=== PATIENT | female | born 1940 | race Caucasian/White ===

== ENCOUNTER 2022-01-30 13:56 | Outpatient (CLI) | payer MEDICARE, OTHER, SELFPAY ==
[2022-01-30 11:23] LABS: Cholesterol* 194 mg/dL (90-199); Glucose* 106 mg/dL (60-115); Triglycerides* 125 mg/dL (40-149)
[2022-01-30 11:24] LABS: HDL Cholesterol* 65 mg/dL (>=50); LDL Cholesterol Calculated 104 mg/dL (<100)
== END 2022-01-30 13:57 | disposition home or self-care (01) ==
PROVIDERS: PCP Internal Medicine; Visit Provider Internal Medicine
DX: Z13.1 Encounter for screening for diabetes mellitus (principal); Z13.6 Encounter for screening for cardiovascular disorders
CPT/HCPCS: 80061; 82947

== ENCOUNTER 2022-04-12 14:23 | Emergency (ER) | payer MEDICARE, OTHER, SELFPAY ==
[2022-04-12] VITALS (11 sets, daily range): BP systolic 114–150; BP diastolic 67–86; PULSE 73–195; RESP 18; TEMP 36.3; O2SAT 91–98; BMI 30.3
--- NOTE | 2022-04-12 14:44 | CRLHL7_ITS ---
For Patients: As a result of the Cures Act, medical imaging exams and procedure reports are released immediately into your electronic medical record. You may view this report before your referring provider. If you have questions, please contact your health care provider. INDICATION: Palpitations TECHNIQUE: Chest 1 view Comparison: None Findings: Cardiac silhouette is mildly enlarged. No focal lung consolidation, pleural effusion or pneumothorax. Degenerative changes in the spine. Impression: Mild cardiomegaly. Otherwise no acute cardiopulmonary abnormality. Dictated by Edgard Watson MD @ 04/12/2022 3:43:12 PM (Electronically Signed)
--- NOTE | 2022-04-12 14:45 | ED.NURSE ---
pt arrived to ED in SVT 190's. ekg done, pt placed on heart monitor. #20 sl placed r ac, 6mg adenosine given with dr. antony at bedside. pt converted to SR 90's. pt states feeling better.
--- NOTE | 2022-04-12 14:51 | ED.GENADULT ---
HPI - General Adult General Time Seen by Provider: 14:51 Date Seen: 04/12/22 Chief complaint: Arrhythmia/Palpitations Stated complaint: Elevated heartrate Time Seen by Provider: 04/12/22 14:24 Source: patient Mode of arrival: ambulatory Limitations: no limitations History of Present Illness HPI narrative: Patient is a very pleasant 81-year-old female who lives independently in the apartments at [address] [place] [address], and noted some dizziness today, some rapid heart rate, and noted her pulse to be in the 201 range. She has had 1 episode of this in the past but it resolved spontaneously within minutes, she has had no regular SVT, she has a past history of acoustic neuroma and uterine prolapse. She has had no cardiac history. She reports she is on aspirin allergy medicine and estradiol vaginal cream and meclizine as needed medications. She is on and has no allergies. On presentation her heart rate is 195, and regular. The patient denies chest pain, denies shortness of breath does feel her heart racing. She has had no recent bleeding clotting or swelling in her legs. She has been sick with a ?cold-like symptoms? over the last couple of weeks. She has had COVID/influenza/RSV test were negative. She sees Dr. Vandana gillette for primary care Related Data Home Medications Medication Instructions Recorded Confirmed meclizine 25 mg tablet 25 mg PO 10/15/21 03/26/22 acetaminophen 325 mg tablet 325 mg PO ONCE 01/27/22 03/26/22 apple cider vinegar 600 mg capsule 600 mg PO PRN 01/27/22 03/26/22 aspirin 81 mg chewable tablet 81 mg PO QDAY PRN 01/27/22 03/26/22 cetirizine 10 mg tablet 10 mg PO QDAY PRN 01/27/22 03/26/22 Previous Rx's Medication Instructions Recorded estradiol 0.01% (0.1 mg/gram) 0.5 g vaginal .Twice Weekly 10/15/21 vaginal cream vaginal atrophy 90 days #42.5 grams metoprolol succinate 25 mg 25 mg PO DAILY #14 tabs 04/12/22 tablet,extended release 24 hr Allergies Allergy/AdvReac Type Severity Reaction Status Date / Time No Known Allergies Allergy Verified 02/25/22 11:06 Review of Systems Status of ROS: Reports: 10 or more systems reviewed and unremarkable except as noted in History and below [facility] Surgical History History of appendectomy History of cataract surgery History of tonsillectomy History of tubal ligation Social History Smoking Status: Never smoker How often do you have a drink containing alcohol: never AUDIT-C Alcohol total score: 0 Non-prescribed substance use: denies use Little interest or pleasure in doing things: not at all Feeling down, depressed, or hopeless: not at all Exam Narrative: Exam Narrative: Objective: Patient's vital signs unremarkable, her pulse however is 195. HEENT is unremarkable Patient alert orient x3 Lungs are clear Heart tachycardic rhythm 2/6 systolic murmur Abdomen benign Extremities are no edema neurologic nonfocal, good peripheral perfusion noted Const: Vital Signs, click to edit/add: Vital Signs - 24 hr 04/12/22 14:28 04/12/22 15:20 04/12/22 15:30 Temperature 97.4 F L Pulse Rate 94 93 Pulse Rate [Right Pulse Oximeter] 195 H Respiratory Rate 18 Blood Pressure Blood Pressure [Ri ght Upper Arm] 114/77 Pulse Oximetry 98 91 95 Oxygen Delivery Me thod Room Air 04/12/22 15:31 04/12/22 16:00 04/12/22 16:02 Temperature Pulse Rate 91 82 86 Pulse Rate [Right Pulse Oximeter] Respiratory Rate Blood Pressure 128/74 129/72 Blood Pressure [Ri ght Upper Arm] Pulse Oximetry 94 97 92 Oxygen Delivery Me thod 04/12/22 16:03 04/12/22 16:30 04/12/22 16:32 Temperature Pulse Rate 84 79 82 Pulse Rate [Right Pulse Oximeter] Respiratory Rate Blood Pressure 150/86 H Blood Pressure [Ri ght Upper Arm] Pulse Oximetry 97 96 96 Oxygen Delivery Me thod 04/12/22 17:00 04/12/22 17:02 Temperature Pulse Rate 73 77 Pulse Rate [Right Pulse Oximeter] Respiratory Rate Blood Pressure 122/67 Blood Pressure [Ri ght Upper Arm] Pulse Oximetry 96 96 Oxygen Delivery Me thod Course Vital Signs Vital signs: Initial Vital Signs Temperature 97.4 F L 04/12/22 14:28 Temperature Source Temporal Artery Scan 04/12/22 14:28 Pulse Rate 195 H 04/12/22 14:28 Respiratory Rate 18 04/12/22 14:28 Blood Pressure 114/77 04/12/22 14:28 Blood Pressure Mean 89 04/12/22 14:28 Blood Pressure Position Sitting 04/12/22 14:28 Pulse Oximetry 98 04/12/22 14:28 Oxygen Delivery Method 04/12/22 14:28 Vital Signs Temperature 97.4 F L 04/12/22 14:28 Pulse Rate 195 H 04/12/22 14:28 Respiratory Rate 18 04/12/22 14:28 Blood Pressure 114/77 04/12/22 14:28 Pulse Oximetry 98 04/12/22 14:28 Oxygen Delivery Method 04/12/22 14:28 Temperature 97.4 F L 04/12/22 14:28 Pulse Rate 77 04/12/22 17:02 Respiratory Rate 18 04/12/22 14:28 Blood Pressure 122/67 04/12/22 17:02 Pulse Oximetry 96 04/12/22 17:02 Oxygen Delivery Method 04/12/22 14:28 Medical Decision Making MDM Narrative Medical decision making narrative: Patient is an 81 white female who is generally quite healthy, but has had a history of what sounds like SVT in the past that resolved spontaneously. Now with an episode of what appears to be SVT based on EKG findings of narrow complex tachycardia that looks regular she does have some right and left partial blocks her heart rate is 196 on the EKG that my read. Procedure: Adenosine 6 mg IV was given in a push fashion. And the patient had a transient block of her heart rate, then followed by a normal sinus rhythm at a rate of 106 she has got a bifascicular block by my read no acute ST T wave changes. Patient feels much better at this time. Should get a 500 mL normal saline bolus, will give her aspirin, will get laboratory studies and x-ray. Will repeat a COVID/influenza/RSV test. Will recheck a troponin after the 1. Patient had SVT it appears with the EZ conversion to adenosine with just slowing her rate. Likely Holter monitor probably home, light activity, continue aspirin, follow-up with Dr. Ross in as planned in the next few days Addendum: Patient's lab studies look reassuring, her initial troponin is negative her 2nd troponin is in the intermediate range which shows cardiac strain from a rapid heart rate of the 200 range. She remains in a sinus rhythm, she took the metoprolol and tolerated that well her systolic blood pressure is 122. She has appointment see Dr. Ross in later this week to discuss ongoing management. I think that is very reasonable I think she can go home at this time fluids, light activity, or metoprolol daily she can fill this prescription tomorrow, adequate hydration is important in this was discussed with her and her son they will follow up with her doctor as mention return to ED as needed. Lab Data Labs: Lab Results 04/12/22 04/12/22 04/12/22 Range/Units 14:44 14:45 14:45 WBC 8.71 (4.50-11.00) K/uL RBC 5.32 H (4.00-5.20) m/uL Hgb 14.9 (12.0-16.0) gm/dL Hct 46.1 (33.0-51.0) % MCV 87 (80-100) fL MCH 28 (26-34) pg MCHC 32 (32-36) gm/dL RDW Coeff of Rhina 13.3 (11.5-15.5) % Plt Count 236 (140-440) K/uL Neut % (Auto) 73.0 H (42.0-72.0) % Lymph % (Auto) 18.5 L (20-44) % [place] % (Auto) 6.2 (0.0-11.0) % Eos % (Auto) 1.8 (0.0-7.0) % Baso % (Auto) 0.3 (0.0-3.0) % Neut # (Auto) 6.40 (1.7-7.0) K/uL Lymph # (Auto) 1.60 (0.90-2.90) K/uL [place] # (Auto) 0.50 (0.00-0.90) K/UL Eos # (Auto) 0.16 (0.00-0.50) K/uL Baso # (Auto) 0.03 (0.00-0.30) K/uL Sodium 137 (135-149) mmol/L Potassium 3.6 (3.6-5.1) mmol/L Chloride 100 (96-114) mmol/L Carbon Dioxide 31 (20-32) mmol/L BUN 11 (7-30) mg/dL Creatinine 0.7 (0.5-1.5) mg/dL Estimated Creat Clear 46.59 Estimated GFR 86 ml/min Glucose 183 H (60-115) mg/dL Calcium 9.8 (8.4-10.6) mg/dL Total Bilirubin (0.1-1.5) mg/dL Direct Bilirubin (0.0-0.5) mg/dL AST (12-35) U/L ALT (4-35) U/L Alkaline Phosphatase (40-150) U/L Troponin I (0.01-0.04) ng/mL C-Reactive Protein 0.6 (0.5-1.0) mg/dL Total Protein (6.0-8.3) g/dL Albumin (3.3-5.0) g/dL Amylase 78 (18-89) U/L SARS-CoV-2 (PCR) Negative SARS-CoV-2 (Negative) Influenza Type A (PCR) Negative PCR FLU A (Negative) Influenza Type B (PCR) Negative PCR FLU B (Negative) RSV (PCR) Negative PCR RSV (Negative) 04/12/22 04/12/22 Range/Units 14:45 16:45 WBC (4.50-11.00) K/uL RBC (4.00-5.20) m/uL Hgb (12.0-16.0) gm/dL Hct (33.0-51.0) % MCV (80-100) fL MCH (26-34) pg MCHC (32-36) gm/dL RDW Coeff of Rhina (11.5-15.5) % Plt Count (140-440) K/uL Neut % (Auto) (42.0-72.0) % Lymph % (Auto) (20-44) % [place] % (Auto) (0.0-11.0) % Eos % (Auto) (0.0-7.0) % Baso % (Auto) (0.0-3.0) % Neut # (Auto) (1.7-7.0) K/uL Lymph # (Auto) (0.90-2.90) K/uL [place] # (Auto) (0.00-0.90) K/UL Eos # (Auto) (0.00-0.50) K/uL Baso # (Auto) (0.00-0.30) K/uL Sodium (135-149) mmol/L Potassium (3.6-5.1) mmol/L Chloride (96-114) mmol/L Carbon Dioxide (20-32) mmol/L BUN (7-30) mg/dL Creatinine (0.5-1.5) mg/dL Estimated Creat Clear Estimated GFR ml/min Glucose (60-115) mg/dL Calcium (8.4-10.6) mg/dL Total Bilirubin 0.7 (0.1-1.5) mg/dL Direct Bilirubin 0.2 (0.0-0.5) mg/dL AST 31 (12-35) U/L ALT 23 (4-35) U/L Alkaline Phosphatase 142 (40-150) U/L Troponin I < 0.01 L 0.09 H* (0.01-0.04) ng/mL C-Reactive Protein (0.5-1.0) mg/dL Total Protein 7.9 (6.0-8.3) g/dL Albumin 4.3 (3.3-5.0) g/dL Amylase (18-89) U/L SARS-CoV-2 (PCR) (Negative) Influenza Type A (PCR) (Negative) Influenza Type B (PCR) (Negative) RSV (PCR) (Negative) Discharge Plan Discharge Clinical Impression: Tachycardia Patient Disposition: Home w/ Parent or Adult Condition: Improved Additional Instructions: light activity, fluids, continue home meds, metoprolol daily, appt regiular doc next week as planned Activity Level: Light activity Discharge Diet: Regular Prescriptions: New metoprolol succinate 25 mg tablet extended release 24 hr 25 mg PO DAILY Qty: 14 2RF No Action meclizine 25 mg tablet 25 mg PO estradiol 0.01 % (0.1 mg/gram) cream 0.5 g vaginal .Twice Weekly 90 Days Qty: 42.5 4RF Rx Instructions: Use twice weekly. May apply with fingers acetaminophen 325 mg tablet 325 mg PO ONCE Rx Instructions: NO MORE THAN 4000 MG/DAY aspirin 81 mg tablet,chewable 81 mg PO QDAY PRN apple cider vinegar 600 mg capsule 600 mg PO PRN cetirizine 10 mg tablet 10 mg PO QDAY PRN Follow Up/Referrals: Paola Caban MD [Primary Care Provider] - Stand Alone Forms: [facility] Info Instructions
[2022-04-12] MEDS: ADENOSINE 6 MG/2ML INJ IVP (14:54)
[2022-04-12 14:59] LABS: Basophils Absolute Auto 0.03 K/uL (0.00-0.30); Basophils Percent Auto 0.3 % (0.0-3.0); Eosinophils Absolute Auto 0.16 K/uL (0.00-0.50); Eosinophils Percent Auto 1.8 % (0.0-7.0); Hematocrit 46.1 % (33.0-51.0); Hemoglobin* 14.9 gm/dL (12.0-16.0); Immature Granulocytes Abs Auto 0.02 K/uL (0.00-0.30); Immature Granulocytes Pct Auto 0.2 %; Lymphocytes Percent Auto 18.5 % (20-44); Mean Corpuscular HGB Conc 32 gm/dL (32-36); Mean Corpuscular Hemoglobin 28 pg (26-34); Mean Corpuscular Volume 87 fL (80-100); Monocytes Percent Auto 6.2 % (0.0-11.0); Platelet Count* 236 K/uL (140-440); RDW Coefficient of Variation % 13.3 % (11.5-15.5); Red Blood Count 5.32 m/uL (4.00-5.20); Slide Review Reflex No; White Blood Count* 8.71 K/uL (4.50-11.00)
[2022-04-12] MEDS: 0.9 % SODIUM CHLORIDE 500 ML 500 ML IV (15:07)
[2022-04-12 15:08] LABS: Albumin* 4.3 g/dL (3.3-5.0)
[2022-04-12] MEDS: ASPIRIN 81 MG TAB.CHEW 162 MG PO ×3 (15:08→15:09)
[2022-04-12 15:09] LABS: Chloride* 100 mmol/L (96-114); Potassium* 3.6 mmol/L (3.6-5.1); Sodium* 137 mmol/L (135-149)
[2022-04-12 15:11] LABS: Alanine Aminotransferase* 23 U/L (4-35); Alkaline Phosphatase* 142 U/L (40-150); Amylase* 78 U/L (18-89); Aspartate Amino Transferase* 31 U/L (12-35); Bilirubin Direct* 0.2 mg/dL (0.0-0.5); Bilirubin Total* 0.7 mg/dL (0.1-1.5); Total Protein* 7.9 g/dL (6.0-8.3)
[2022-04-12 15:12] LABS: Blood Urea Nitrogen* 11 mg/dL (7-30); Carbon Dioxide* 31 mmol/L (20-32); Creatinine* 0.7 mg/dL (0.5-1.5); Est. Creatinine Clearance* 46.59; Estimated Glomerular Filt Rate 86 ml/min
[2022-04-12 15:13] LABS: Calcium* 9.8 mg/dL (8.4-10.6); Glucose* 183 mg/dL (60-115)
[2022-04-12 15:15] LABS: C Reactive Protein* 0.6 mg/dL (0.5-1.0)
[2022-04-12 15:22] LABS: Troponin I* < 0.01 ng/mL (0.01-0.04)
[2022-04-12 15:47] LABS: PCR FLU A Negative PCR FLU A (Negative); PCR FLU B Negative PCR FLU B (Negative); PCR RSV Negative PCR RSV (Negative)
[2022-04-12] MEDS: METOPROLOL SUCCINATE (XL) 25 MG TAB PO (15:52)
[2022-04-12 15:56] LABS: SARS PCR* Negative SARS-CoV-2 (Negative)
[2022-04-12 17:26] LABS: Troponin I* 0.09 ng/mL (0.01-0.04)
== END 2022-04-12 17:46 | disposition home or self-care (01) ==
PROVIDERS: Emergency Provider Family Medicine; PCP Internal Medicine
DX: R00.0 Tachycardia, unspecified (principal)
CPT/HCPCS: 36415; 71045; 80048; 80076; 82150; 84484; 85025; 86140; 87502; 87634; 87635; 93005; 94761; 96374; 99285; 99291; A9270; J0153; J7120

== ENCOUNTER 2022-06-08 15:11 | Outpatient (CLI) | payer MEDICARE, OTHER, SELFPAY ==
--- NOTE | 2022-06-08 15:30 | CRLHL7_ITS ---
For Patients: As a result of the Century Cures Act, medical imaging exams and procedure reports are released immediately into your electronic medical record. You may view this report before your referring provider. If you have questions, please contact your health care provider. INDICATION: Acoustic neuroma. TECHNIQUE: Brain and temporal bone MRI with contrast. The following sequences were obtained: DWI and ADC mapping sequences. Sagittal T1 weighted sequence. Axial FLAIR and ALVARO T2 weighted sequences of the whole brain. 3D T2-weighted CISS sequence of the temporal bones. Thin section T1 weighted axial and coronal pre-contrast and post-contrast sequences of the temporal bones. T1 weighted post-contrast sequence(s) of the whole brain. 15 cc of Dotarem gadolinium based contrast agent was used. COMPARISON : Brain MRI from 01/08/2021. FINDINGS: 7 x 7 millimeter enhancing nodule within the left internal auditory canal, compatible with a vestibular schwannoma. The lesion extends to the left IAC fundus. Stable in size and appearance compared to the prior exam. No evidence of acute ischemia. No evidence of acute or chronic intracranial blood products. No mass or pathologic intracranial enhancement elsewhere within the brain. Patchy FLAIR hyperintensities throughout the supratentorial white matter, and to a lesser extent the central brainstem, typical for chronic microvascular ischemic changes. No hydrocephalus or extra-axial collections. The pituitary gland, parasellar structures and optic chiasm are normal. All the major intracranial vascular structures demonstrate normal flow-related signal. The orbital contents are normal. No calvarial or skull base marrow replacing process. No obstructive sinus disease. No extracranial soft tissue findings. IMPRESSION: 1. 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 2. No mass or abnormal enhancement elsewhere within the brain. 3. No acute ischemia or other acute intracranial pathology. 4. Mild to moderate chronic microvascular ischemic changes. Dictated by Marc Dominguez MD @ 06/09/2022 2:08:15 PM (Electronically Signed)
== END 2022-06-08 15:12 | disposition home or self-care (01) ==
PROVIDERS: PCP Internal Medicine; Visit Provider Otolaryngology
DX: D33.3 Benign neoplasm of cranial nerves (principal); I67.82 Cerebral ischemia
CPT/HCPCS: 70553; A9575

== ENCOUNTER 2022-06-21 16:08 | Emergency (ER) | payer MEDICARE, OTHER, SELFPAY ==
[2022-06-21] VITALS (12 sets, daily range): BP systolic 142–182; BP diastolic 87–102; PULSE 82–189; RESP 22; TEMP 37.1; O2SAT 93–99; BMI 29.9
[2022-06-21] MEDS: ADENOSINE 6 MG/2ML INJ IVP (16:25)
--- NOTE | 2022-06-21 16:33 | ED_ITS ---
HPI - Arrhythmia/Palpitations General Chief Complaint: Arrhythmia/Palpitations Stated Complaint: Elevated Heart Rate 210 Time Seen by Provider: 06/21/22 16:14 History of Present Illness HPI narrative: This 81-year-old female comes in with rapid heart rate. She arrives with a rate at around 190 beats per minute. She thinks that this started about half an hour prior to arrival. She does not report any chest pain but does feel little bit of lightheadedness and shortness of breath. She is maintaining other normal vital signs. Prior to this she was feeling well. She had a similar episode about 2 and half months ago and was converted with adenosine. Related Data Home Medications Medication Instructions Recorded Confirmed cetirizine 10 mg tablet 10 mg PO QDAY PRN 01/27/22 06/21/22 acetaminophen 325 mg tablet 325 mg PO ONCE PRN 05/26/22 06/21/22 amoxicillin 500 mg capsule 500 mg PO TID 05/26/22 05/26/22 aspirin 81 mg tablet,delayed 81 mg PO QDAY PRN 05/26/22 06/21/22 release (Adult Low Dose Aspirin) ibuprofen 200 mg tablet 200 mg PO Q6H PRN 05/26/22 06/21/22 meclizine 25 mg tablet 25 mg PO DAILY PRN 05/26/22 06/21/22 Previous Rx's Medication Instructions Recorded estradiol 0.01% (0.1 mg/gram) 0.5 g vaginal .Twice Weekly 10/15/21 vaginal cream vaginal atrophy 90 days #42.5 grams metoprolol succinate 25 mg 25 mg PO DAILY #30 tabs 06/21/22 tablet,extended release 24 hr Allergies Allergy/AdvReac Type Severity Reaction Status Date / Time No Known Allergies Allergy Verified 06/21/22 16:22 Review of Systems Status of ROS: Reports: 10 or more systems reviewed and unremarkable except as noted in History and below Narrative: Constitutional: No fevers, no weight gain or loss. Eyes: No discharge. No vision changes. HENT: No congestion, no sore throat, no ear pain. Cardiovascular: No chest pain. Rapid heart rate. Respiratory: No shortness of breath, no wheezes, no cough. Gastrointestinal: No abdominal pain, no vomiting, no diarrhea. Genitourinary: No dysuria, no hematuria. Musculoskeletal: Normal range of motion. Skin: No rashes, no pruritis. Neurological: No dizziness, weakness, sensory change, speech change. Endo/Heme/Allergies: No bruising or bleeding. No polydipsia. Pysch: no suicidality, no anxiety, no insomnia. All other systems reviewed and are negative. [facility] Medical History (Updated 06/21/22 @ 17:28 by Gee Ryder MD) Situational anxiety Surgical History History of appendectomy History of cataract surgery History of tonsillectomy History of tubal ligation Social History Smoking Status: Never smoker Do you use any of these nicotine containing products: None Second hand tobacco smoke exposure: No How often do you have a drink containing alcohol: never AUDIT-C Alcohol total score: 0 Non-prescribed substance use: denies use Little interest or pleasure in doing things: not at all Feeling down, depressed, or hopeless: not at all Exam Narrative: Exam Narrative: Constitutional: Well-developed, well-nourished, no acute distress. HEENT: Normocephalic, atraumatic. Neck: Normal range of motion. Nontender. Supple. Heart: Regular. No murmurs. Tachycardia, rate 190 beats per minute. Lungs: Clear to auscultation. No chest discomfort. No wheezes, rhonchi, or rales. Abdomen: Normal bowel sounds. Nontender. No rebound tenderness. Genitalia: Deferred. Back: No midline tenderness. Normal range of motion. Extremities: Normal range of motion. No injury. Skin: Intact. No rash. Warm. No erythema or pallor. Neurologic: No altered sensation. No weakness. Alert and oriented. Psychiatric: No suicidality. No anxiety or depression. No insomnia. Nursing notes and vitals signs are reviewed. Const: Vital Signs, click to edit/add: Vital Signs - 24 hr 06/21/22 16:17 06/21/22 16:25 06/21/22 16:32 Temperature 98.8 F Pulse Rate 83 Pulse Rate [Right Pulse Oximeter] 189 H Respiratory Rate 22 Blood Pressure 163/91 H Blood Pressure [Ri ght Upper Arm] 142/102 H Pulse Oximetry 97 99 95 Oxygen Delivery Me thod Room Air 06/21/22 16:33 03/05/23 16:45 06/21/22 16:47 Temperature Pulse Rate 84 87 89 Pulse Rate [Right Pulse Oximeter] Respiratory Rate Blood Pressure 150/87 H Blood Pressure [Ri ght Upper Arm] Pulse Oximetry 94 94 94 Oxygen Delivery Me thod 06/21/22 16:48 06/21/22 17:07 06/21/22 17:15 Temperature Pulse Rate 89 91 82 Pulse Rate [Right Pulse Oximeter] Respiratory Rate Blood Pressure Blood Pressure [Ri ght Upper Arm] Pulse Oximetry 93 96 95 Oxygen Delivery Me thod Course Vital Signs Vital signs: Initial Vital Signs Temperature 98.8 F 06/21/22 16:17 Temperature Source Temporal Artery Scan 06/21/22 16:17 Pulse Rate 189 H 06/21/22 16:17 Respiratory Rate 22 06/21/22 16:17 Blood Pressure 142/102 H 06/21/22 16:17 Blood Pressure Mean 115 06/21/22 16:17 Blood Pressure Position Sitting 06/21/22 16:17 Pulse Oximetry 97 06/21/22 16:17 Oxygen Delivery Method 06/21/22 16:17 Vital Signs Temperature 98.8 F 06/21/22 16:17 Pulse Rate 189 H 06/21/22 16:17 Respiratory Rate 22 06/21/22 16:17 Blood Pressure 142/102 H 06/21/22 16:17 Pulse Oximetry 97 06/21/22 16:17 Oxygen Delivery Method 06/21/22 16:17 Temperature 98.8 F 06/21/22 16:17 Pulse Rate 82 06/21/22 17:15 Respiratory Rate 22 06/21/22 16:17 Blood Pressure 150/87 H 06/21/22 16:47 Pulse Oximetry 95 06/21/22 17:15 Oxygen Delivery Method 06/21/22 16:17 MDM - Arrhythmia/Palpitations MDM Narrative Medical decision making narrative: This patient comes in with rapid heart rate typical of supraventricular tachycardia. She had similar episode about 2 and half months ago. An IV was established where she received 6 mg of adenosine. This brought her back into normal sinus rhythm. Lab results returned with reassuring findings. The patient continues to remain in normal sinus rhythm with appropriate heart rate and sufficient blood pressure. She did receive 500 mL of normal saline intravenously. Since this is a recurrent episode of SVT I did prescribe metoprolol 25 mg extended release. She was prescribed this medicine after the 1st occurrence but has not continued it. This is understandable as usually this is infrequent are not recurring. Given the recurrence it seems reasonable to take a low-dose which her heart rate and blood pressure should accommodate. I recommended that she follow-up with her primary physician in this regard to review her medications what may seemed to work best for her. Lab Data Labs: Lab Results 06/21/22 06/21/22 06/21/22 Range/Units 16:20 16:20 16:25 WBC 5.76 (4.50-11.00) K/uL RBC 5.16 (4.00-5.20) m/uL Hgb 14.5 (12.0-16.0) gm/dL Hct 44.5 (33.0-51.0) % MCV 86 (80-100) fL MCH 28 (26-34) pg MCHC 33 (32-36) gm/dL RDW Coeff of Rhina 13.0 (11.5-15.5) % Plt Count 179 (140-440) K/uL Neut % (Auto) 50.9 (42.0-72.0) % Lymph % (Auto) 35.6 (20-44) % [place] % (Auto) 9.4 (0.0-11.0) % Eos % (Auto) 3.8 (0.0-7.0) % Baso % (Auto) 0.3 (0.0-3.0) % Neut # (Auto) 2.93 (1.7-7.0) K/uL Lymph # (Auto) 2.05 (0.90-2.90) K/uL [place] # (Auto) 0.50 (0.00-0.90) K/UL Eos # (Auto) 0.22 (0.00-0.50) K/uL Baso # (Auto) 0.02 (0.00-0.30) K/uL Sodium 136 (135-149) mmol/L Potassium 3.5 L (3.6-5.1) mmol/L Chloride 102 (96-114) mmol/L Carbon Dioxide 31 (20-32) mmol/L BUN 12 (7-30) mg/dL Creatinine 0.5 (0.5-1.5) mg/dL Estimated Creat Clear 31.15 Estimated GFR 94 ml/min Glucose 141 H (60-115) mg/dL Calcium 9.8 (8.4-10.6) mg/dL Magnesium 1.9 (1.5-2.6) mg/dL POC Troponin I 0.01 (0.01-0.04) ng/ml ECG Data Attestation: I personally reviewed and interpreted this ECG as follows: Interpretation: Sinus tachycardia typical of supraventricular tachycardia. Rate 191 beats per minute. There are no specific ST or T-wave abnormalities. Repeat EKG after adenosine is given shows sinus tachycardia, rate 103 beats per minute. There are no specific ST or T-wave abnormalities. Discharge Plan Discharge Clinical Impression: Supraventricular tachycardia Patient Disposition: Home w/ Parent or Adult Condition: Improved Additional Instructions: Take metoprolol as prescribed. Continue other current plans as before. Follow- up with primary physician to review medications and plans. Return if recurrent or worsening symptoms happen. Prescriptions: New metoprolol succinate 25 mg tablet extended release 24 hr 25 mg PO DAILY Qty: 30 2RF No Action estradiol 0.01 % (0.1 mg/gram) cream 0.5 g vaginal .Twice Weekly 90 Days Qty: 42.5 4RF Rx Instructions: Use twice weekly. May apply with fingers acetaminophen 325 mg tablet 325 mg PO ONCE PRN Rx Instructions: NO MORE THAN 4000 MG/DAY meclizine 25 mg tablet 25 mg PO DAILY PRN cetirizine 10 mg tablet 10 mg PO QDAY PRN aspirin [Adult Low Dose Aspirin] 81 mg tablet,delayed release (DR/EC) 81 mg PO QDAY PRN amoxicillin 500 mg capsule 500 mg PO TID Label Comments: TAKE 1 CAPSULE BY MOUTH 3 TIMES A DAY UNTIL GONE ibuprofen 200 mg tablet 200 mg PO Q6H PRN Follow Up/Referrals: Paola Caban MD [Primary Care Provider] - Stand Alone Forms: [employer] Info Instructions
[2022-06-21 16:34] LABS: Basophils Absolute Auto 0.02 K/uL (0.00-0.30); Basophils Percent Auto 0.3 % (0.0-3.0); Eosinophils Absolute Auto 0.22 K/uL (0.00-0.50); Eosinophils Percent Auto 3.8 % (0.0-7.0); Hematocrit 44.5 % (33.0-51.0); Hemoglobin* 14.5 gm/dL (12.0-16.0); Lymphocytes Absolute Auto 2.05 K/uL (0.90-2.90); Lymphocytes Percent Auto 35.6 % (20-44); Mean Corpuscular HGB Conc 33 gm/dL (32-36); Mean Corpuscular Hemoglobin 28 pg (26-34); Mean Corpuscular Volume 86 fL (80-100); Monocytes Percent Auto 9.4 % (0.0-11.0); Neutrophils Absolute Auto 2.93 K/uL (1.7-7.0); Neutrophils Percent Auto 50.9 % (42.0-72.0); Platelet Count* 179 K/uL (140-440); Red Blood Count 5.16 m/uL (4.00-5.20); White Blood Count* 5.76 K/uL (4.50-11.00)
[2022-06-21] MEDS: 0.9 % SODIUM CHLORIDE 500 ML 500 ML IV (16:34)
[2022-06-21 16:38] LABS: Troponin, Point-of-Care* 0.01 ng/ml (0.01-0.04)
[2022-06-21 16:40] LABS: Slide Review Reflex No
[2022-06-21 16:47] LABS: Chloride* 102 mmol/L (96-114)
[2022-06-21 16:48] LABS: Potassium* 3.5 mmol/L (3.6-5.1); Sodium* 136 mmol/L (135-149)
[2022-06-21 16:50] LABS: Creatinine* 0.5 mg/dL (0.5-1.5); Est. Creatinine Clearance* 31.15; Estimated Glomerular Filt Rate 94 ml/min
[2022-06-21 16:51] LABS: Blood Urea Nitrogen* 12 mg/dL (7-30); Calcium* 9.8 mg/dL (8.4-10.6); Carbon Dioxide* 31 mmol/L (20-32); Glucose* 141 mg/dL (60-115); Magnesium* 1.9 mg/dL (1.5-2.6)
[2022-06-21] MEDS: METOPROLOL TARTRATE 25 MG TABLET PO (17:37)
== END 2022-06-21 17:54 | disposition home or self-care (01) ==
PROVIDERS: Emergency Provider Emergency Medicine Emergency Medical Services; PCP Internal Medicine
DX: I47.1 Supraventricular tachycardia (principal)
CPT/HCPCS: 36415; 80048; 83735; 84484; 85025; 93005; 94761; 96374; 99284; 99291; A9270; J0153; J7120

== ENCOUNTER 2022-06-27 08:43 | Emergency (ER) | payer MEDICARE, OTHER, SELFPAY ==
[2022-06-27 08:49] VITALS: BP 174/86; PULSE 65; RESP 20; TEMP 36.4; O2SAT 98; BMI 29.5
--- NOTE | 2022-06-27 08:58 | CRLHL7_ITS ---
For Patients: As a result of the Century Cures Act, medical imaging exams and procedure reports are released immediately into your electronic medical record. You may view this report before your referring provider. If you have questions, please contact your health care provider. INDICATION: Fall TECHNIQUE: Two view chest. Comparison chest x-ray 04/11/2022 FINDINGS: The lungs are clear. The heart, mediastinum and pulmonary vessels are of normal size. There is no evidence of pleural disease. Thoracic aorta appears tortuous/ectatic. Bones are demineralized with thoracic kyphosis. Proximal humeral fracture partially seen IMPRESSION: Negative chest. Left proximal humeral fracture. Dictated by Lamar Wilkinson MD @ 06/27/2022 9:40:23 AM (Electronically Signed)
--- NOTE | 2022-06-27 08:58 | CRLHL7_ITS ---
For Patients: As a result of the Cures Act, medical imaging exams and procedure reports are released immediately into your electronic medical record. You may view this report before your referring provider. If you have questions, please contact your health care provider. Indication: Fall Technique: Two views left humerus Comparison: No comparison Findings: Comminuted left proximal humerus fracture involving the surgical neck and probable fracture of the greater tuberosity minimal displacement and minimal angulation. Dictated by Lamar Wilkinson MD @ 06/27/2022 9:33:21 AM (Electronically Signed)
--- NOTE | 2022-06-27 08:59 | ED_ITS ---
HPI - General Adult General Time Seen by Provider: 08:59 Date Seen: 06/27/22 Chief complaint: Extremity Pain/Injury, Upper Stated complaint: Fell today Time Seen by Provider: 06/27/22 08:44 Source: patient Mode of arrival: ambulatory Limitations: physical limitation History of Present Illness HPI narrative: Patient is a very pleasant 81 white female who unfortunately tripped and fell at home she broke her glasses but denies any head or neck injury or back pain her main complaint is her left shoulder. She reports tenderness over the anterior aspect of the shoulder and difficulty moving her shoulder and arm. She has no pain in her left upper extremity other than her shoulder region no humeral or elbow pain no forearm or wrist pain. She had no loss conscious, no chest pain, no fevers chills she simply tripped and lost balance. This occurred in her home. She is here with her son. Related Data Home Medications Medication Instructions Recorded Confirmed cetirizine 10 mg tablet 10 mg PO QDAY PRN 01/27/22 06/27/22 acetaminophen 325 mg tablet 325 mg PO ONCE PRN 05/26/22 06/27/22 amoxicillin 500 mg capsule 500 mg PO TID 05/26/22 05/26/22 aspirin 81 mg tablet,delayed 81 mg PO QDAY PRN 05/26/22 06/27/22 release (Adult Low Dose Aspirin) ibuprofen 200 mg tablet 200 mg PO Q6H PRN 05/26/22 06/27/22 meclizine 25 mg tablet 25 mg PO DAILY PRN 05/26/22 06/27/22 Previous Rx's Medication Instructions Recorded estradiol 0.01% (0.1 mg/gram) 0.5 g vaginal .Twice Weekly 10/15/21 vaginal cream vaginal atrophy 90 days #42.5 grams metoprolol succinate 25 mg 25 mg PO DAILY #30 tabs 06/21/22 tablet,extended release 24 hr Allergies Allergy/AdvReac Type Severity Reaction Status Date / Time No Known Allergies Allergy Verified 06/21/22 16:22 Review of Systems Status of ROS: Reports: 6 or more systems reviewed and unremarkable except as noted in History and below [facility] Medical History Situational anxiety Surgical History History of appendectomy History of cataract surgery History of tonsillectomy History of tubal ligation Social History Smoking Status: Never smoker Do you use any of these nicotine containing products: None Second hand tobacco smoke exposure: No How often do you have a drink containing alcohol: never AUDIT-C Alcohol total score: 0 Non-prescribed substance use: denies use Little interest or pleasure in doing things: not at all Feeling down, depressed, or hopeless: not at all Exam Narrative: Exam Narrative: Objective: Vital signs show slightly elevated blood pressure, patient is in no apparent distress, no cyanosis, no complaint head or neck pain or back pain. Airway breathing circulation disability unremarkable Secondary survey HEENT is unremarkable no facial asymmetry no facial discomfort or disc coloration or bruising Neck is supple Back exam unremarkable Left shoulder shows anterior tenderness limited AP duction and flexion extension although she is able to do some, no obvious sulcus sign no obvious dislocation. Distal CMS is normal left upper extremity right upper extremity unremarkable chest back abdomen pelvis and lower extremities unremarkable patient has a can ambulate. Const: Vital Signs, click to edit/add: Vital Signs - 24 hr 06/27/22 08:49 06/27/22 09:48 06/27/22 09:47 Temperature 97.6 F Pulse Rate [Pulse Oximeter] 65 60 Respiratory Rate 20 20 Blood Pressure [Ri ght Upper Arm] 174/86 H 114/63 71/49 L Pulse Oximetry 98 97 Oxygen Delivery Me thod Room Air Course Vital Signs Vital signs: Initial Vital Signs Temperature 97.6 F 06/27/22 08:49 Temperature Source Temporal Artery Scan 06/27/22 08:49 Pulse Rate 65 06/27/22 08:49 Respiratory Rate 20 06/27/22 08:49 Blood Pressure 174/86 H 06/27/22 08:49 Blood Pressure Mean 115 06/27/22 08:49 Blood Pressure Position Sitting 06/27/22 08:49 Pulse Oximetry 98 06/27/22 08:49 Oxygen Delivery Method 06/27/22 08:49 Vital Signs Temperature 97.6 F 06/27/22 08:49 Pulse Rate 65 06/27/22 08:49 Respiratory Rate 20 06/27/22 08:49 Blood Pressure 174/86 H 06/27/22 08:49 Pulse Oximetry 98 06/27/22 08:49 Oxygen Delivery Method 06/27/22 08:49 Temperature 97.6 F 06/27/22 08:49 Pulse Rate 60 06/27/22 09:48 Respiratory Rate 20 06/27/22 09:48 Blood Pressure 114/63 06/27/22 09:48 Pulse Oximetry 97 06/27/22 09:48 Oxygen Delivery Method 06/27/22 08:49 Medical Decision Making MDM Narrative Medical decision making narrative: [age] white female with a trip and fall at home with left shoulder pain. No other significant sequelae noted. X-ray of the left shoulder, rule out dislocation, humeral neck fracture. Disposition pending findings. Patient recently has had trouble with supraventricular tachycardia, but has regular pulse at this time. Addendum: By my read the patient's x-ray she has a surgical neck fracture mildly displaced. She has good distal CMS in left upper extremity, sling placed, patient declined any pain medicine at this time. Needs ortho follow-up in 3-4 days. This will be set up. Difficulty or problem should return to the ED. she seems to benefit from Tylenol Advil and will do this at home and recheck as needed. Discharge Plan Discharge Clinical Impression: Acute pain of left shoulder, Fall Patient Disposition: Home w/ Parent or Adult Condition: Stable Additional Instructions: Tylenol and Advil as needed, may take up to 3 Advil at a time. Orthopedic follow-up as scheduled. Keep the arm in a sling for comfort. Return to ED as needed Activity Level: Light activity Discharge Diet: Regular Prescriptions: No Action estradiol 0.01 % (0.1 mg/gram) cream 0.5 g vaginal .Twice Weekly 90 Days Qty: 42.5 4RF Rx Instructions: Use twice weekly. May apply with fingers acetaminophen 325 mg tablet 325 mg PO ONCE PRN Rx Instructions: NO MORE THAN 4000 MG/DAY meclizine 25 mg tablet 25 mg PO DAILY PRN cetirizine 10 mg tablet 10 mg PO QDAY PRN aspirin [Adult Low Dose Aspirin] 81 mg tablet,delayed release (DR/EC) 81 mg PO QDAY PRN amoxicillin 500 mg capsule 500 mg PO TID Label Comments: TAKE 1 CAPSULE BY MOUTH 3 TIMES A DAY UNTIL GONE ibuprofen 200 mg tablet 200 mg PO Q6H PRN metoprolol succinate 25 mg tablet extended release 24 hr 25 mg PO DAILY Qty: 30 2RF Follow Up/Referrals: Paola Caban MD [Primary Care Provider] - Stand Alone Forms: [employer] Medical Info Instructions
[2022-06-27 09:47] VITALS: BP 71/49
[2022-06-27 09:48] VITALS: BP 114/63; PULSE 60; RESP 20; O2SAT 97
--- NOTE | 2022-06-27 09:53 | ED.NURSE ---
Sling applied to left arm. was trying to adjust sling to comfort when pt stated she wasn't feeling well. Pt became warm and started to become clammy. B/p while sitting 71/49. Once pt was laying down, b/p increased to 114/63. Pt stated that she did not know how she was going to manage at home in the sling. Dr Mays updated. Will allow pt to rest at this time.
--- NOTE | 2022-06-27 10:22 | ED.NURSE ---
Pt lives alone at [address], pt is unsure about logistics of caring for herself at home. pt and son was offered services from EMS to come and check on her this evening. Pt and son declined. Son states that he will be with pt today and tomorrow. Both were more so wondering about detention care. Explained that [employer] customer service care of arm would be discussed by the ortho MD when pt e to her appointment on Wednesday. Given some suggestion on how to sleep at night with arms propped on pillows and how to get in and out of shirt with injured arm. Pt and son grateful for tips and were ok with d/c to home for the weekend.
== END 2022-06-27 10:15 | disposition home or self-care (01) ==
PROVIDERS: Emergency Provider Family Medicine; PCP Internal Medicine
DX: M25.512 Pain in left shoulder (principal); W01.0XXA Fall on same level from slipping, tripping and stumbling without subsequent striking against object, initial encounter
CPT/HCPCS: 71046; 73030; 99283; 99284

== ENCOUNTER 2022-08-19 13:02 | Outpatient (RCR) | payer MEDICAID, SELFPAY | END 2023-08-17 17:00 | disposition home or self-care (01) | LOC: MOW 13:02 | PROVIDERS: PCP Internal Medicine; Visit Provider Internal Medicine | DX: Z76.0 Encounter for issue of repeat prescription (principal) | CPT/HCPCS: S5170 ==

== ENCOUNTER 2022-11-03 13:00 | Outpatient (RCR) | payer MEDICARE, OTHER, SELFPAY ==
--- NOTE | 2022-07-07 17:49 | OT.OPOE ---
OT Outpatient Ortho Eval OT Outpatient Ortho Eval Start: 07/07/22 17:10 Freq: Status: Active Protocol: Document 07/07/22 17:10 EUGENE (Rec: 07/07/22 17:40 LCN [id number]) E-signed By Carmen Farrar, OTR/L, CLT OT OP Ortho Eval Details Type Type Eval Complexity Low Insurance Information Insurance Information Medicare B Outpatient History/Precautions Current Condition/Medical Diagnosis Referring Provider Brice Randle Treatment Diagnosis Edema of L UE after L humerical fracture Date of Onset 06/27/22 Precautions Lifting Restrictions,Range of Motion Other Precautions In sling x 6 weeks/start PT for shoulder in 6 weeks. OT to address edema and gentle hand , wrist, elbow ROM. Has return to clinic and xray scheduled for 07/22/22. Medical Conditions Heart Condition,HTN,Arthritis Other Conditions Pt with new onset of supraventricular tachycardia in Mar 2022 with 2 ER visits/ adenosine injections to recover and new medication regimen. Meclizine for vertigo. Has prolapsed uterus , use of pessary to support. Medical/Functional History Medical History Reviewed Yes Prior Level of Function/Mobility Pt lives (I) at [address], doesn't drive , can't afford car. Son has been coming in 2x/day to help with changing clothes and sling placement in am and HS. Daughter in law helps with showers. 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 Fitness usually walks 20 min QD. Oriented Mental Status No Concerns Mental Status Comments Pt's Mini Cog 2022 was 4/5, missing 1 of 3 words with delay. Does well managing medications, small meals, making appointments. Ortho Subjective Subjective Subjective Anurag Denisha Mcclure has her ever first fall on 06/27/22 ( stepped on the side of her [employer]ken[employer] at the door and tipped over onto her L side, breaking glasses), and unfortunately fractured her L humerus at the surgical neck, possibly greater tubercle and is now in a sling for 6 weeks. Having difficulty with more stiffness edema in her hand, forearm, elbow while in sling. Wants to know how to position safely to help edema. Unable to remove/replace sling by herself yet. Pain Assessment Pain Present Pain Present Pain Reported Goniometric Comments Goniometric Comments Goniometric Comments ROM-- R SH EL full ROM, no pain. L UE-- able to make full fist and 20 of 70 degree wrist mechoopda. Full supination/pronation. 15- 125 EL EX -FL. Shrugs shoulder to 50%. MMT not tested but able to use grab bar at toilet strongly with R hand and presses herself up from chairs, recliner well w R hand. Edema Assessment Location L elbow/forearm, wrist Degree 3+ Query Text:1+ (Trace) Mild pitting, slight indentation, rapid return to normal 2+ (Mild) Moderate pitting, 4mm indent, rebounds in a few seconds 3+ (Moderate) Deep pitting, 6mm indent, 30 seconds 4+ (Severe) Very deep pitting, 8 mm indent, > 30 seconds to return to normal Edema Appearance Shiny,Tight,Hard,Stretched Looking,Purple Description Subjective Edema Description Itching,Tightness Additional Information Comments L MCP 17.5 cm Wrist crease 18.0 cm 5 cm below elbow 25.0. EL 26.0 5 cm above EL 27.0 15 cm above EL 30.0 cm OT Objective Data Hand Hand Dominance Right Upper Extremity Special Tests Upper Extremity Special Tests Comments Comments Denies any numbess or sensation changes in L hand/UE . OT Problems Problems Problems Decreased Strength,Decreased Range of Motion,Lifting Problems Comments Edema, stiffness. Other Problems Opening Containers,Dressing, Fasteners Patient Potential Excellent Assessment Assessment Assessment Given Denisha's L humeral surgical neck fracture and ?difficulty with edema, pain, ROM and strength loss of L hand/wrist/elbow , she would benefit from skilled OT to address these areas. Occupational Therapy Treatment Plan - OP Potential Rehabilitation Potential Excellent Set Goals Goals Set with Patient Yes Goals Goals In 6 weeks, pt will demonstrate:? 1) I HEP for stretching at elbow, forearm, wrist and hand /digit levels and edema mgmt strategies. 2)??Pt to use safe adaptive one handed strategies, adaptive equipment and positioning to protect joint integrity to support less pain /edema with ADL. Target Date 09/05/22 Progress set Treatment Plan Treatment Plan Evaluation,Edema Control, Manual Therapy,Therapeutic Exercise,Therapeutic Activities,Self-Care/Home Management,Caregiver Training, Education Expected Frequency Comments 2-4 visits in 6 weeks, may do extra MLD to reduce edema if positioning, compression , ROM exercises do not resolve it quickly. Expected Duration 4-6 Weeks Certification Certification I Certify That: Therapy Services Provided, Therapy Plan Established, Therapy Plan Reviewed Recertification Information Recertification Information Initial Certification Date 07/07/22 Recertification Due Date 09/05/22 Provider Signature Shows Agreement With POC & Medical Necessity Physician Comment/Change Comment or Changes Physician NPI Number #
--- NOTE | 2022-07-15 12:16 | OT.OPODN ---
OT Outpatient Ortho Daily Note OT Outpatient Ortho Daily Note Start: 07/07/22 17:10 Freq: Status: Active Protocol: Document 07/15/22 11:59 LCN (Rec: 07/15/22 12:16 EUGENE [email or web address]) E-signed By Carmen Farrar OTR/L, CLT Type of Note Type of Note Type of Note Daily Note Visit Number 2 Insurance Information Insurance Information Medicare B Outpatient History/Precautions Current Condition/Medical Diagnosis Referring Provider Brice Randle Treatment Diagnosis Edema of L UE after L humerical fracture Date of Onset 06/27/22 Precautions Lifting Restrictions,Range of Motion Other Precautions In sling x 6 weeks/start PT for shoulder in 6 weeks. OT to address edema and gentle hand , wrist, elbow ROM. Has return to clinic and xray scheduled for 07/22/22. Medical Conditions Heart Condition,HTN,Arthritis Other Conditions Pt with new onset of supraventricular tachycardia in Mar 2022 with 2 ER visits/ adenosine injections to recover and new medication regimen. Meclizine for vertigo. Has prolapsed uterus , use of pessary to support. Medical/Functional History Medical History Reviewed Yes Prior Level of Function/Mobility Pt lives (I) at [address] [facility] [place] apartments, doesn't drive , can't afford car. Son has been coming in 2x/day to help with changing clothes and sling placement in am and HS. Daughter in law helps with showers. 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 Fitness usually walks 20 min QD. Oriented Mental Status No Concerns Mental Status Comments Pt's Mini Cog 2022 was 4/5, missing 1 of 3 words with delay. Does well managing medications, small meals, making appointments. Ortho Subjective Subjective Subjective Denisha is walking faster today. Not tolerating compression sleeve wrist to humerus, tape rolled into her skin from soft rolling edema pocketing at top, so she stopped wearing quickly. WOrking on HEP 1-2 x /dya with support under forearm. Unfortunately broke a crown and needing help to get ready for safe positioning for 2 dental visits in a dental chair. Has hard ridge of edema with peau de orange appearance at ulnar shaft but girth is reducing by .5 to . 7 cm for 3 of 5 measuremenst. up by .7 at wrist and above elbow. Above to make full fist 45 wrist FL and EX with support/AAROM. ELbow gets stiff from sling, has not been letting elbow dangle, lacking 15 degrees DELANEY. Anurag Mcclure has her ever first fall on 06/27/22 ( stepped on the side of her [employer] at the door and tipped over onto her L side, breaking glasses), and unfortunately fractured her L humerus at the surgical neck, possibly greater tubercle and is now in a sling for 6 weeks. Having difficulty with more stiffness edema in her hand, forearm, elbow while in sling. Wants to know how to position safely to help edema. Unable to remove/replace sling by herself yet. Pain Assessment Pain Present Pain Present Pain Reported OT OP Daily Ortho Note/Assessment Self-Care/Home Management Self-Care/Home Management Minutes ( 15 minutes) Self-Care/Home Management Comments Reviewed positioning in recliner for rest times and HS with pillow under elbow to keep humerus anterior while supported in sling and pillow under wrist/hand, elevating to heart level. Applied this for while sleeping in recliner ( may need to secure pillow into chair held by pillow case and safety pins) and frequent toileting 3x/night by herself . ALso applied to dental chair, will need assist during transitions and keeping UE in place during crown procedure/ eval. Reviewed technique for donning /waistbands one handed and side leaning for axilla care, applying deodorant. Therapeutic Exercise Therapeutic Exercise Minutes (minutes) 15 Therapeutic Exercise Comments Pt educated in SROM of EL FL using two hands, gentle pressure, keeping humerus applied to rib cage and while in sling. OTR reinforces need to work on stretching support elbow to full extension 2x/ day full ROM during clothing changes and shower, will be safest doing this with family assist. Reviewed AROM wrist circles, WR EX/WF in pronated position and also with forearm in neutral, which she can do better on her own with pillow in place or supporting with R hand. Does well w flat fist and digit ABD exercises. Manual Therapy Manual Therapy Minutes (minutes) 15 Manual Therapy Comments OTR completes gentle MLD edema mobilization techniques for fibrosis at ulnar shaft, dorsal wrist and fits pt with size E tetragrip palm with upper forearm. Comfortable. Goniometric Comments Goniometric Comments Goniometric Comments ROM-- R SH EL full ROM, no pain. L UE-- able to make full fist and 20 of 70 degree wrist [place]. Full supination/pronation. 15- 125 EL EX -FL. Shrugs shoulder to 50%. MMT not tested but able to use grab bar at toilet strongly with R hand and presses herself up from chairs, recliner well w R hand. Edema Assessment Location L elbow/forearm, wrist Degree 3+ Query Text:1+ (Trace) Mild pitting, slight indentation, rapid return to normal 2+ (Mild) Moderate pitting, 4mm indent, rebounds in a few seconds 3+ (Moderate) Deep pitting, 6mm indent, 30 seconds 4+ (Severe) Very deep pitting, 8 mm indent, > 30 seconds to return to normal Edema Appearance Shiny,Tight,Hard,Stretched Looking,Purple Description Subjective Edema Description Itching,Tightness Additional Information Comments L MCP 17.5 cm Wrist crease 18.0 cm 5 cm below elbow 25.0. EL 26.0 5 cm above EL 27.0 15 cm above EL 30.0 cm OT Objective Data Hand Hand Dominance Right Upper Extremity Special Tests Upper Extremity Special Tests Comments Comments Denies any numbess or sensation changes in L hand/UE . OT Problems Problems Problems Decreased Strength,Decreased Range of Motion,Lifting Problems Comments Edema, stiffness. Other Problems Opening Containers,Dressing, Fasteners Patient Potential Excellent Assessment Assessment Assessment Denisha is having some elbow/ forearm stiffness and small increase of edema of L wrist. Updated compression to forearm, family pleased to have help anticipating her positioning needs for upcoming dental work. Given Sean's L humeral fracture, she is having ? difficulty with edema, pain, ROM and strength loss of L hand/wrist/elbow and she continues to benefit from skilled OT to address these areas. Occupational Therapy Treatment Plan - OP Potential Rehabilitation Potential Excellent Set Goals Goals Set with Patient Yes Goals Goals In 6 weeks, pt will demonstrate:? 1) I HEP for stretching at elbow, forearm, wrist and hand /digit levels and edema mgmt strategies. 2)??Pt to use safe adaptive one handed strategies, adaptive equipment and positioning to protect joint integrity to support less pain /edema with ADL. Target Date 09/05/22 Progress set Treatment Plan Treatment Plan Evaluation,Edema Control, Manual Therapy,Therapeutic Exercise,Therapeutic Activities,Self-Care/Home Management,Caregiver Training, Education Expected Frequency Comments 2-4 visits in 6 weeks, may do extra MLD to reduce edema if positioning, compression , ROM exercises do not resolve it quickly. Expected Duration 4-6 Weeks OT Treatment Minutes Treatment Minutes Timed Treatment Minutes 45 Total Treatment Minutes 45 Occupational Therapy Billing Units Billing Units Manual Therapy 1 Self Care/Home Management 1 Therapeutic Exercise 1 Certification Certification I Certify That: Therapy Services Provided, Therapy Plan Established, Therapy Plan Reviewed Recertification Information Recertification Information Initial Certification Date 07/07/22 Recertification Due Date 09/05/22 Provider Signature Shows Agreement With POC & Medical Necessity Physician Comment/Change Comment or Changes Physician NPI Number #
--- NOTE | 2022-08-11 17:07 | PT.OPEX ---
PT [place] Outpatient Eval PT [facility] Outpatient Eval Start: 08/11/22 08:49 Freq: Status: Active Protocol: Document 08/11/22 08:49 HN (Rec: 08/11/22 12:47 HN [id number]) E-signed By Malinda Sun DPT Physical Therapy Outpatient Evaluation Insurance Information Recert Due Date 11/08/22 Insurance Name Medicare B Insurance Information/Comments Medicare Medical Diagnosis Unspecified fracture of shaft of humerus, unspecified arm, initial encounter for closed fracture. S42. 309A Treating Diagnosis Left humerus fracture pain in left shoulder muscle weakness stiffness in left shoulder Referring MD Dr Brice Randle Subjective Subjective Patient is a 82 year old female with patient left shoulder pain after a fall on 06/27/22.Daughter in law Evelyne present for evaluation today. Patient reports she was wearing a sling. Patienet left shoulder movement has greatly decreased since injury and pain has been high. Currently seeing OT for UE edema, wrist and elbow. Aggravating factors: difficulty reaching forward, supination, left arm movement in general Easing Factors: rest, not moving arm Prior level of function: independent with dressing, bathing, laundry, Daughter in law and son drive patient, assist with IADLs grocery shopping, taking out the garbage Current limitations: dressing, bathing, laundry, cooking, cleaning, reaching overhead, performing self care activities including brushing teeth Imaging: Per X-ray report, Comminuted left proximal humerus fracture involving the surgical neck and probable fracture of the greater tuberosity minimal displacement and minimal angulation (DOI: 06/27/2022) PMH: History of paroxysmal supraventricular tachycardia ( Acute) Z86.79, 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 Pain Comments Current: 0/10 Best: 0/10 Worst: 6/10 Current Work Status Retired Occupation Retired Preferred Name Denisha Precautions Treatment Precautions/Contraindications Left humerus fracture Weight Bearing Status Weight Bear as Tolerated Objective Other/Pertinent Objective Shoulder range of motion: Flexion: 139 R/ 50 L AROM, 56 degrees PROM limited by pain Abduction: 115 R/ 39 L AROM, 65 degrees PROM limited by pain External rotation: 20 degrees L PROM Internal rotation: 50 degrees L PROM Manual muscle testing: Shoulder flexion: 2-/5 L , 5/ 5 R Shoulder extension: 2+/5 L , 5/5 R Shoulder abduction: 2-/5 L , 5/5 R Shoulder external rotation: 3- /5 L , 5/5 R Shoulder internal rotation: 3- /5 L , 5/5 R Elbow flexion: 4/5 L , 5/5 R Elbow extension: 4/5 L , 5/5 R Joint mobility: deferred due to pain Functional Test Performed & Score quickDash: deferred will assess next session Assessment Assessment/Impression Patient is a 82 year old with complaints of left shoulder pain after fall and subsequent fracture on 06/27/22. Patient demonstrates left shoulder range of motion, strength, and pain consistent with diagnosis. The impairments impact the patients dressing, grooming bathing, reaching overhead and participation in ADLs and IADLs including doing laundry. Patient will benefit from skilled physical therapy to address the impairments and activity limitations listed above. Primary Functional Limitations dressing, grooming, bathing, reaching overhead and participation in ADLs and IADLs including doing laundry, hold a book to read Plan of Care Rehabilitation Potential Good Physical Therapy Goals Short term goals (6 weeks, 09/22) 1. Patient will report <5/10 pain in order to demonstrate decreased pain and disability related to symptoms 2. Patient will demonstrate 20 degree improvement in flexion /abduction range of motion to improve tolerance with dressing and 3. Patient will demonstrate 3/ 5 strength with flexion/ abduction in order to improve ability to reach overheadand wash hair. [facility] weeks ( 12, 11/03/22 ) 1. Patient will reports no increase with drying back or dressing in order to be independent with ADLs 2. Patient will demonstrate independence of with home exercise program with to manage symptoms independently 3. Patient will demonstrate flexion/abdcution range of motion of 120 or greater in order to improve tolerance with putting away groceries in the cabinet. 4. Patient will demosntrate 4/ 5 strength or greater with LE UE MMT in order to improve tolerance of IADLs including laundry and dressing. Coordination/Communication With Referral Source Treatment Plan/Direct Interventions Electrical Stimulation,Ice/ Cold/Vasopneumatic,Joint Mobilization,Manual Therapy, Neuromuscular Re-ed,Self-Care/ Home Management,Therapeutic Activities,Therapeutic Exercises Frequency/Duration 1-2x/week for up to 12 weeks Patient Will Be Discharged From Therapy Completion of LTG(s),Skills Plateau,Independent w/HEP Evaluation Billing Untimed Code Treatment Minutes 30 Complexity Low Certification Information Initial Certification Date 08/11/22 Ending Certification Date 11/08/22 Provider Signature Shows Agreement With POC & Medical Necessity Physician Signature & Date Requested Please Sign/Date Here Physician Comment/Change : Physician NPI Number #
--- NOTE | 2022-09-18 15:46 | OT.OPODN2 ---
OT Outpatient Ortho Daily Note OT Outpatient Ortho Daily Note Start: 07/07/22 17:10 Freq: Status: Active Protocol: Document 09/15/22 12:14 LCN (Rec: 09/15/22 12:30 LCJon [id number]) E-signed By Carmen Farrar, OTR/Rubio, CLT Type of Note Type of Note Type of Note Daily Note,Discharge Note,Note To MD Visit Number 4 Comments 08/31/22-- Pt cx, at [facility]. Had ablation per HR at 207 OTR missed last appointment per illness. Insurance Information Insurance Information Medicare B Outpatient History/Precautions Current Condition/Medical Diagnosis Referring Provider Brice Randle Treatment Diagnosis Edema of L UE after L humerical fracture Date of Onset 06/27/22 Precautions Lifting Restrictions,Range of Motion Other Precautions In sling x 6 weeks/start PT for shoulder in 6 weeks. OT to address edema and gentle hand , wrist, elbow ROM. Has return to clinic and xray scheduled for 07/22/22. Medical Conditions Heart Condition,HTN,Arthritis Other Conditions Pt with new onset of supraventricular tachycardia in Mar 2022 with 2 ER visits/ adenosine injections to recover and new medication regimen. Meclizine for vertigo. Has prolapsed uterus , use of pessary to support. Medical/Functional History Medical History Reviewed Yes Prior Level of Function/Mobility Pt lives (I) at [address], doesn't drive , can't afford car. Son has been coming in 2x/day to help with changing clothes and sling placement in am and HS. Daughter in law helps with showers. 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 Fitness usually walks 20 min QD. Oriented Mental Status No Concerns Mental Status Comments Pt's Mini Cog 2022 was 4/5, missing 1 of 3 words with delay. Does well managing medications, small meals, making appointments. Ortho Subjective Subjective Subjective Denisha is now able to do some embroidering, managing thread with both hands, gather her own clothes, dress, shower, do pessary and creams on her own . Struggles with putting on bra, taking longer, but mostly able, hard to do the back side and R side of her hair care. Pt doing well with full EL flexion, extension, supination executive vice president and chief financial officer closure;edema much better. Working on building shoulder ROM and UB strength with pt to support her haircare, donning bra. Pain Assessment Pain Present Pain Present Pain Reported OT OP Daily Ortho Note/Assessment Self-Care/Home Management Self-Care/Home Management Minutes ( 25 minutes) Self-Care/Home Management Comments OTR helps pt problem solve how to do hair with L elbow propped on table ( reduce balance issue and tremorring in hands while at end of SH AROM with L UE). Bra donning shown how to use a pants mash filter cloth changer with clip as an extension, while seated on toilet. Therapeutic Exercise Therapeutic Exercise Minutes (minutes) 15 Therapeutic Exercise Comments Pt shown how to use cane for adding supported SH FL to help increase her regularity of SROM of L shoulder. OTR has her complete 5 sets of 30 sec holds, OTR adding assist with scapular upward rotation and reducing shoulder hike during stretches. Pt able to demo return of assisted modified closed chain SH FL. Review of yellow putty exercises to help progress her executive vice president and chief financial officer/pinch strength. Goniometric Comments Goniometric Comments Goniometric Comments ROM-- R SH EL full ROM, no pain. L UE-- able to make full fist and 20 of 70 degree wrist mcgrath. Full supination/pronation. 15- 125 EL EX -FL. Shrugs shoulder to 50%. MMT not tested but able to use grab bar at toilet strongly with R hand and presses herself up from chairs, recliner well w R hand. Hand Pinch/Shipyard Laborer Strength Hand Right Shipyard Laborer Strength Position 1 (lbs) 45 Lateral Pinch Strength (lbs) 13 Three Point Pinch (lbs) 11 Left Shipyard Laborer Strength Position 1 (lbs) 24 Lateral Pinch Strength (lbs) 11 Three Point Pinch (lbs) 7 Edema Assessment Location L elbow/forearm, wrist Degree None Query Text:1+ (Trace) Mild pitting, slight indentation, rapid return to normal 2+ (Mild) Moderate pitting, 4mm indent, rebounds in a few seconds 3+ (Moderate) Deep pitting, 6mm indent, 30 seconds 4+ (Severe) Very deep pitting, 8 mm indent, > 30 seconds to return to normal Description Subjective Edema Description Itching,Tightness Additional Information Comments Edema resolved 09/15/22 OT Objective Data Hand Hand Dominance Right Upper Extremity Special Tests Upper Extremity Special Tests Comments Comments Denies any numbess or sensation changes in L hand/UE . OT Problems Problems Problems Decreased Strength,Decreased Range of Motion,Lifting Problems Comments Edema, stiffness. Other Problems Opening Containers,Dressing, Fasteners Patient Potential Excellent Assessment Assessment Assessment Improving with ability to make transitional movements in/out of sling, jacket. Edema softens with MLD Given Sean's L humeral fracture, she is having ? difficulty with edema, pain, ROM and strength loss of L hand/wrist/elbow and she continues to benefit from skilled OT to address these areas. Occupational Therapy Treatment Plan - OP Potential Rehabilitation Potential Excellent Set Goals Goals Set with Patient Yes Goals Goals GOAL PROGRESS--After 4 visits of OT, Denisha demonstrates:? 1) I HEP for stretching at elbow, forearm, wrist and hand /digit levels and edema mgmt strategies. (GOAL MET 08/07/22) 2)??Pt to use safe adaptive one handed strategies, adaptive equipment and positioning to protect joint integrity to support less pain /edema with ADL. (GOAL MET ) Target Date 09/05/22 Progress set Treatment Plan Treatment Plan Evaluation,Edema Control, Manual Therapy,Therapeutic Exercise,Therapeutic Activities,Self-Care/Home Management,Caregiver Training, Education Expected Frequency Comments 2-4 visits in 6 weeks, may do extra MLD to reduce edema if positioning, compression , ROM exercises do not resolve it quickly. Expected Duration 4-6 Weeks OT Treatment Minutes Treatment Minutes Timed Treatment Minutes 40 Total Treatment Minutes 40 Occupational Therapy Billing Units Billing Units Self Care/Home Management 2 Therapeutic Exercise 1 Certification Certification I Certify That: Therapy Services Provided, Therapy Plan Established, Therapy Plan Reviewed Recertification Information Recertification Information Initial Certification Date 07/07/22 Recertification Due Date 09/05/22 Provider Signature Shows Agreement With POC & Medical Necessity Physician Comment/Change Comment or Changes Physician NPI Number # Discharge Note Discharge Note Discharge Summary Per above goals, progress, pt has met OT goals after 4 visits. Date of First Visit for Therapy 07/07/22 Date of Last Visit for Therapy 09/15/22 Initial Primary Functional Limitations/ Anurag Denisha Mcclure has her Concerns ever first fall on 06/27/22 ( stepped on the side of her Birkenstock at the door and tipped over onto her L side, breaking glasses), and unfortunately fractured her L humerus at the surgical neck, possibly greater tubercle and is now in a sling for 6 weeks. Having difficulty with more stiffness edema in her hand, forearm, elbow while in sling. Wants to know how to position safely to help edema. Unable to remove/replace sling by herself yet. Initial Pain Level 8 Pain Level at Discharge 2 Interventions Provided During Treatment Manual Therapy,Therapeutic Exercise,Self Care/Home Management Recommendations/Reason for Discharge Met All Therapy Goals Discharge Instructions Will continue towards overhead tasks with strength , ROM with remainder of PT sessions.
== END 2022-11-18 10:42 | disposition home or self-care (01) ==
PROVIDERS: PCP Internal Medicine; Visit Provider Orthopaedic Surgery
DX: S42.309A Unspecified fracture of shaft of humerus, unspecified arm, initial encounter for closed fracture (principal); Z51.89 Encounter for other specified aftercare
CPT/HCPCS: 97110; 97140; 97161; 97165; 97535; X5282

== ENCOUNTER 2023-01-05 11:15 | Outpatient (RCR) | payer MEDICARE, OTHER, MEDICAID, SELFPAY ==
--- NOTE | 2022-11-19 15:58 | PT.OPEX ---
PT [place] Outpatient Eval PT [facility] Outpatient Eval Start: 11/17/22 07:53 Freq: Status: Active Protocol: Document 11/17/22 09:45 HN (Rec: 11/17/22 15:36 HN [id number]) E-signed By Malinda Sun DPT Physical Therapy Outpatient Evaluation Insurance Information Recert Due Date 02/14/23 Insurance Name Medicare B,Medicaid Insurance Information/Comments Medicaid/Medicare Medical Diagnosis R. 26.89 for Other Abnormalities of Gait and Mobility. Treating Diagnosis R. 26.89 for Other Abnormalities of Gait and Mobility. M62. 81 generalized muscle weakness Referring MD Paola Caban MD Subjective Subjective Patient is a 82 year old female with balance concerns and recent fall 06/27/22 and L humerus fracture. Patient reports she feels most off balance when walking ( feels like she is leaning to the R, getting out of chair or car, looking down at ground, and putting on pants without sitting down or reaching with UE. Patient has started using SPC, uses outside always and inside, occasionally, uses 4WW for laundry. Patient reports shower has grab bars, does have seat but patient doesn't use, has a elevated toilet, with grab bar and vanity. Patient reports balance has worsened since most fall in June. 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, history of TIA seen on imaging Social History: lives alone at [address], son and daughter in law assist with driving, patient receives help for cleaning, independent with dressing and grooming, Pain Comments none reported Current Work Status Retired Occupation Retired Preferred Name Denisha Precautions Therapy Limitations/Systems Review Cognition Objective Other/Pertinent Objective 5 time sit to stand: 12 seconds Timed up and go: 10 seconds Dynamic Gait index: 04/11 Gait speed: 1.2 m/s MCTSIB: eyes open, firm: 30 seconds eyes open, foam: 30 seconds mild sway eyes cosed firm: 30 seconds moderate sway eyes closed, foam: 10 seconds, with mild LOB and UE support to regain Assessment Assessment/Impression Patient is a year old with concerns related to balance and fall 06/27/22 resulting in humerus fracture. Patient demonstrates impaired static and dynamic balance, decreased functional LE strength, impaired balance sensory integration and impaired gait consistent with balance deficits. Patient dynamic gait index score of 12/24 indicates she is at risk for falls. The impairments impact the patients impact the patient's transfers, ambulation, balance with ADLs and IADLs including dressing. Patient will benefit from skilled physical therapy to address the impairments and activity limitations listed above and reduce risk for falls. Primary Functional Limitations transfers, ambulation, balance with ADLs and IADLs including dressing Plan of Care Rehabilitation Potential Good Physical Therapy Goals snf goals (02/09/23 ) 1. Patient will demonstrate 5 time sit to stand with no use of UE support in 11 seconds or less in order to demonstrate improved LE strength and decreased risk for falls. 2.Patient will demonstrate improved gait speed by 0.12 m/ s to demonstrate improved safety with ambulation 3. Patient will complete modified independent floor transfers x1 in order to demonstrate safe transfers to/ from floor in case of a fall. 4. Patient will demonstrate dynamic gait index of 19/24 or greater in order to demonstrate decreased risk for falls with functional gait tasks. (Cut off score 19/24) 5. Patient will demonstrate independence with HEP in order to independently manage condition at home. Coordination/Communication With Referral Source Treatment Plan/Direct Interventions Gait Training,Manual Therapy, Neuromuscular Re-ed,Self-Care/ Home Management,Therapeutic Activities,Therapeutic Exercises Frequency/Duration 1x/week or 1x/every other week for up to 12 visits Patient Will Be Discharged From Therapy Completion of LTG(s),Skills Plateau,Independent w/HEP Evaluation Billing Untimed Code Treatment Minutes 30 Complexity Low Certification Information Initial Certification Date 11/17/22 Ending Certification Date 02/14/23 Provider Signature Shows Agreement With POC & Medical Necessity Physician Signature & Date Requested Please Sign/Date Here Physician Comment/Change : Physician NPI Number #
== END 2023-01-15 08:50 | disposition home or self-care (01) ==
PROVIDERS: PCP Internal Medicine; Visit Provider Internal Medicine
DX: R26.89 Other abnormalities of gait and mobility (principal); Z51.89 Encounter for other specified aftercare; M62.81 Muscle weakness (generalized)
CPT/HCPCS: 97110; 97112; 97161; 97530; 97535

== ENCOUNTER 2023-08-18 10:01 | Outpatient (RCR) | payer MEDICAID, SELFPAY | END 2024-08-17 13:45 | disposition home or self-care (01) | LOC: MOW 10:01 | PROVIDERS: PCP Internal Medicine; Visit Provider Internal Medicine | DX: Z76.0 Encounter for issue of repeat prescription (principal) | CPT/HCPCS: S5170 ==

== ENCOUNTER 2024-08-31 17:58 | Emergency (ER) | payer MEDICARE, OTHER, MEDICAID, SELFPAY ==
[2024-08-31 18:07] VITALS: BP 129/71; PULSE 68; RESP 16; TEMP 36.8; O2SAT 96; BMI 33.0
--- NOTE | 2024-08-31 18:49 | CRLHL7_ITS ---
For Patients: As a result of the Century Cures Act, medical imaging exams and procedure reports are released immediately into your electronic medical record. You may view this report before your referring provider. If you have questions, please contact your health care provider. INDICATION: SWELLING/ERYTHEMA L EAR AND ANTERIOR, SWELLING UNDER JAW B/L. TECHNIQUE: CT soft tissue of the neck was acquired with 80 cc Isovue 370 IV contrast. COMPARISON: None. FINDINGS: Skull base: Unremarkable. Visualized paranasal sinuses and mastoid air cells: Essentially clear. Pharynx/Larynx/Trachea: Epiglottis is normal. Airway is patent. Adjacent soft tissues are normal. Salivary glands: Unremarkable. Thyroid gland: Unremarkable. No significant nodules. Lymph nodes: No lymphadenopathy. Vessels: Unremarkable for age. Bones: No acute or suspicious osseous abnormalities. Exaggerated upper thoracic kyphosis. Misc: There is moderate asymmetric soft tissue swelling and stranding of the left external ear, superficial component of the external auditory canal, and the surrounding periarticular soft tissues. This extends inferiorly with mild submandibular soft tissue swelling. No evident loculated rim enhancing fluid collection to indicate the presence of an abscess. Lung apices: Unremarkable within the limitations of moderate respiratory motion artifact. IMPRESSION: Moderate asymmetric inflammatory changes of the left external ear and surrounding soft tissues, which is nonspecific, but could reflect otitis externa in the appropriate clinical setting. Please note that all CT scans at this facility use dose modulation, iterative reconstruction, and/or weight-based dosing when appropriate to reduce radiation dose to as low as reasonably achievable. Dictated by Sony Blanchard MD @ 08/31/2024 8:11:18 PM (Electronically Signed)
--- OUTSIDE RECORDS SUMMARY | 2024-08-31 19:02 | XMS_ITS | Clinical Summary ---
Author Organization [facility] Address [address] [place] [id number] Care Team Providers Care Manager Hotel Name Role Phone Paola Martino MD Primary Care Prov ider Allergies No known active allergies Medications meclizine (ANTIVERT) 25 mg tabletIndicati ons:Vertigo Take 1 tablet by mouth 3 times daily if needed for Vertigo. 15 tablet 1 0 Active cetirizine (ZYRTEC) 5 mg tablet Take 5 mg by mouth once daily if needed (allergies). 2 Active APPLE CIDER VINEGAR ORAL Take by mouth once daily. Active ascorbic acid, vitamin C, (Vitamin C) 250 mg tablet Take 500 mg by mouth once daily. Active acetaminophen (TYLENOL EXTRA STRGTH) 500 mg tablet Take 1,000 mg by mouth every 6 hours if needed for Pain. Max acetaminophen dose: 4000mg in 24 hrs. Active aspirin (ECOTRIN) 81 mg enteric coated tabletIndicati ons:Hypertensi on Take 1 Tablet (81 mg) by mouth once daily with a meal. 0 3 Active Estring 2 mg (7.5 mcg /24 hour) vaginal ring INSERT 1 RING VAGINALLY EVERY 3 MONTHS 4 Active sertraline (ZOLOFT) 50 mg tabletIndicati ons:Mood disorder Take 1 Tablet (50 mg) by mouth once daily. 90 Tablet 3 4 Active metoprolol succinate (TOPROL XL) 25 mg Sustained-Rele ase tabletIndicati ons:Paroxysmal SVT (supraventricu lar tachycardia) (HC) Take 1 Tablet (25 mg) by mouth once daily. 90 Tablet 3 4 Active furosemide (LASIX) 40 mg tabletIndicati ons:Peripheral edema Take 1 Tablet (40 mg) by mouth once daily in the morning. Further refills at [facility] 11/16/2023 90 Tablet 3 4 Active triamcinolone 0.5 % creamIndicatio ns:Psoriasis of scalp APPLY TOPICALLY TO AFFECTED AREA(S) 3 TIMES DAILY ON SCALP 15 g 5 Active losartan (COZAAR) 50 mg tabletIndicati ons:Paroxysmal SVT (supraventricu lar tachycardia) (HC) TAKE 1 TABLET (50 MG) BY MOUTH ONCE DAILY IN THE EVENING. 90 Tablet 1 5 Active ciprofloxacin 500 mg tabletIndicati ons:Perichondr itis Take 1.5 Tablets (750 mg) by mouth two times daily before meals for 10 days. 30 Tablet 5 09/09/19 25 Active ciprofloxacin- dexAMETHasone otic suspensionIndi cations:Perich ondritis,Other infective acute otitis externa of left ear Place 4 Drops into left ear two times daily. 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 Primary hypertension 03/16/2008 Encounters Date Type Department Care Team Description 08/31/2024 Telephone [facility] [address] [place] [address] Paola Martino MD Questions (EAR INFECTION SPREADING ) 08/30/2024 9:50 AM CDT Office Visit [facility] [address] [place] [address] Paola Martino MD Follow Up; Ear Problem (left ear swelling ) 08/29/2024 2:40 PM CDT Office Visit [facility] [address] [place] [address] Paola Martino MD Ear Problem (1 day ago - worsened overnight /left ear swelling, swelling, itching /No known injury or bite ); Headache (Severe headache with ear pain ) 08/29/2024 Travel 08/29/2024 Telephone [facility] [address] [place] [address] Paola Martino MD Questions 07/31/2024 1:25 PM CDT Office Visit [facility] [address] [place] [address] Paola Martino MD Follow Up (Follow up from [employer] [facility]. Does not believe she has memory issues. ) 07/31/2024 Travel 07/26/2024 Travel 06/25/2024 Refill [facility] [address] [place] [id number] Michael Barnett MD Refill Request (Losartan) 06/24/2024 Refill [facility] [address] [place] [address] Paola Martino MD Refill Request (Triamcinolone) from Last 3 Months Immunizations Immunization Administration Dates Next Due COVID-19 vaccine (Moderna 10 0mcg/0.5mL) MIKE SANTOS 06/03/2020 Influenza, High-dose Inactivated 01/29/2024 Influenza, High-dose Quadriv alent Inactivated 01/27/2023,01/28/2022,01/24/2021 Family History Medical History Relation Name Comments Good Health Brother 1 Heart Disease Brother 1 [facility] Brother 2 Diabetes Father of ? in hi s late s Cancer-breast Mother of compli cations of [facility] at 51 Good Health Sister Relation Name Status Comments Brother 1 Brother 2 Father Mother Sister Social History Tobacco Use Types Packs/Day Years Used Date Smoking Tobacco: Never Smokeless Tobacco: Never Tobacco Cessation:Counseling Given: Yes Alcohol Use Standard Drinks/Week Comments No 0 (1 standard drink = 0.6 oz pur e alcohol) PHQ-2 Answer Date Recorded PHQ-2 TOTAL SCORE 0 04/14/2024 Social Connections Answer Date Recorded Do you often feel lonely or isolated from those around you? 0 08/29/2024 Financial Resource Strain Answer Date R ecorded Difficulty of Paying Living Expenses 3 08/29/2024 Difficulty of Paying Living Expenses Not on file 08/29/2024 Food Insecurity Answer Date Recorded Do you worry your food will run out before you are able to buy more? 1 08/29/2024 Transportation Needs Answer Date Record ed Does lack of transportation keep you from medica l appointments? 2 08/29/2024 Does lack of transportation keep you from work, meetings or getting things that you need? 2 08/29/2024 Housing Stability Answer Date Recorded What is your housing situation today? 1 08/29/2024 Utilities Answer Date Recorded Do you have trouble paying f or utilities (for example, heat, electricity, water, phone)? 1 08/29/2024 Comments No Sex and Gender Information Value Date Recorded Sex Assigned at Not on file Legal Sex Female 7:33 AM ANTIQUE COLLECTOR Gender Identity Not on file Sexual Orientation Not on file Occupation Industry Job Start Date Job End Date Retired Not on file Not on file Not on file Obstetrics History Last Filed Vital Signs Vital Sign Reading Time Taken Comments Blood Pressure 118/66 08/30/2024 9:54 AM CDT Pulse 63 08/30/2024 9:54 AM CDT Temperature 36.3 C (97.3 F) 05/30/2024 3:34 PM ANTIQUE COLLECTOR Respiratory Rate 18 05/30/2024 3:34 PM ANTIQUE COLLECTOR Oxygen Saturation 95% 08/30/2024 9:54 AM CDT Inhaled Oxygen Concentration - - Weight 73.2 kg (161 lb 6 oz) 04/14/2024 3:30 PM ANTIQUE COLLECTOR Height 149.5 cm (4' 10.86) 04/14/2024 3:[address] Body Mass Index 32.75 04/14/2024 3:30 PM ANTIQUE COLLECTOR Plan of Treatment Upcoming Encounters Date Type Department Care Team (Late st Contact Info) Description 09/04/2024 1:25 PM CDT Office Visit [facility] [address] [place] [address] Paola Martino MD [address] [place] [address] 12/01/2024 3:55 PM CDT Office Visit [facility] [address] [place] [address] Paola Martino MD [address] [place] [address] Health Maintenance Due Date Last Done Comments Tdap 08/10/1950 Pneumococcal series for age 50+ (1 of 2 - PCV) 08/10/1958 Tetanus booster 1959 Zoster (shingles) series for age 50+ (1 of 2) 08/10/1989 DEXA/DXA scan for age 65+ 08/10/2004 RSV vaccine for adults or (1 - 1-dose 75+ series) 08/10/2014 COVID-19 vaccine series ( season) 2024 01/29/2024, 04/16/2023, 02/02/2022, Additional history exists BMI (ht and wt on same day) for age 18+ 04/14/2025 04/14/2024, 11/03/2017, 05/05/2017, Additional history exists Depression screening for age 12+ 04/14/2025 04/14/20 24 Medicare Wellness for age 65+ 04/15/2025, 04/13/2023 (Completed outside of [facility]), 05/20/2022 (Completed outside of [facility]), Additional history exists Influenza Vaccine Completed 01/29/2024 Insurance MEDICARE [place] ONLY [facility] MEDICARE PART A HB ONLY MEDICARE PPS Advance Directives Documents on File Type Date Recorded 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 * Partial Code Date Activated Date Inactivated Comments 09/01/2022 12:26 AM 09/03/2022 1:33 PM Question Answer Comments Cardio Resuscitation: No Chest Compressions Ventilation: No Restrictions Drug Protocol: No Drug Protocol After Arrest Oc curs Care Teams Manager Hotel Relationship Specialty Start Date End Date Paola Martino MD [address] [place] [address] PCP - General Family Practice 07/26/23
--- NOTE | 2024-08-31 19:06 | ED_ITS ---
HPI - General Adult General Date Seen: 08/31/24 Chief complaint: Skin/Abscess/Foreign Body Stated complaint: Ear/neck pain Time Seen by Provider: 08/31/24 18:36 Source: patient Mode of arrival: ambulatory Limitations: no limitations History of Present Illness HPI narrative: Patient is an 84-year-old female with a history of left-sided acoustic schwannoma causing ear deafness to that here presenting to the emergency department for concern of erythema and swelling to her left ear. She was seen 2 days ago for this and was started on ciprofloxacin. She is also given ciprofloxacin ear drops. She has been taking these medications as directed. Since then they have noticed some slight increase in the overall and tenseness of the redness around her ear but she is now concerned because she has swelling below her right jaw. She initially only on swelling below left jaw. She is concerned and is spreading. She notices some itching now to her right ear. She rates the pain as a 1/10 at best at this time and it is mostly just because it is itchy. Has not had any associated fevers or chills. Does state the year throbs at night. No tenderness or pain noted behind the ear. Denies any difficulty swallowing or breathing. Overall she states she feels well. Denies any pain at this time. She tried to get in with her primary care provider for re-evaluation but was told to come to the emergency department for evaluation. She does have a follow-up scheduled on Wednesday. Related Data Home Medications ?Medication ?Instructions ?Recorded ?Confirmed cetirizine 10 mg tablet 10 mg PO QDAY PRN 01/27/22 06/13/24 acetaminophen 325 mg tablet 325 mg PO ONCE PRN 05/26/22 06/13/24 meclizine 25 mg tablet 25 mg PO DAILY PRN 05/26/22 06/13/24 aspirin 81 mg chewable tablet 81 mg PO QDAY 12/11/22 06/13/24 furosemide 40 mg tablet 40 mg PO DAILY 10/26/23 06/13/24 Previous Rx's ?Medication ?Instructions ?Recorded metoprolol succinate 25 mg 25 mg PO DAILY #30 tabs 06/21/22 tablet,extended release 24 hr walker (Ultra-Light Rollator misc) #1 ea 08/10/22 losartan 25 mg tablet 25 mg PO QDAY #90 tabs 12/11/22 sertraline 50 mg tablet 50 mg PO QDAY #30 tabs 07/27/23 estradiol 2 mg (7.5 mcg/24 hour) 1 vag ring vaginal [id number] #1 ea 06/19/24 vaginal ring (Estring) Allergies Allergy/AdvReac Type Severity Reaction Status Date / Time No Known Allergies Allergy Verified 08/31/24 19:19 Review of Systems Status of ROS: Reports: 10 or more systems reviewed and unremarkable except as noted in History and below PFSH PFSH Medical History Depression ?F32.A - Depression, unspecified (ICD-10) History of paroxysmal supraventricular tachycardia ?Z86.79 - Personal history of other diseases of the circulatory system (ICD- 10) Surgical History History of cardiac radiofrequency ablation ?Z98.890 - Other specified postprocedural states (ICD-10) History of tonsillectomy ?Z90.89 - Acquired absence of other organs (ICD-10) History of appendectomy ?Z90.49 - Acquired absence of other specified parts of digestive tract (ICD- 10) History of tubal ligation ?Z98.51 - Tubal ligation status (ICD-10) History of cataract surgery ?Z98.49 - Cataract extraction status, unspecified eye (ICD-10) Social History Smoking Status: Never smoker Do you use any of these nicotine containing products: None Second hand tobacco smoke exposure: No How often do you have a drink containing alcohol: never AUDIT-C Alcohol total score: 0 Non-prescribed substance use: denies use Exam Narrative: Exam Narrative: Const: Well-nourished, Well-developed, in mild distress Eyes: PERRL, no conjunctival injection, and symmetrical lids HENT: Diffusely erythematous left ear with some notable swelling throughout the ear. Mild erythema in warmth also noted anterior to the ear. No erythema or warmth noted posterior to the ear. No pain noted either. Notably swollen left external auditory canal. Normal right ear Neck: Symmetric, trachea midline, No thyromegaly. Possibly some very mild swelling noted underneath the jaw bilaterally. CVS: RRR, No murmurs or gallops. Peripheral pulses 2+ and equal in all extremities RESP: Unlabored respiratory effort. Clear to auscultation bilaterally. GI: Nontender/Nondistended, No rebound or guarding. MSK:Extremities w/o deformity, Normal Active ROM Skin: Warm, Dry. No rashes or lesions. Neuro: Normal Muscle tone, No focal neurological deficits. Psych: Awake, Alert, & Oriented x3. Appropriate mood and affect. Const: Vital Signs, click to edit/add: Vital Signs - 24 hr 08/31/24 18:07 Temperature 98.2 F Pulse Rate [Pulse Oximeter] 68 Respiratory Rate 16 Blood Pressure [Ri ght Upper Arm] 129/71 Pulse Oximetry 96 Oxygen Delivery Me thod Room Air Course Vital Signs Vital signs: Initial Vital Signs Temperature 98.2 F 08/31/24 18:07 Temperature Source Temporal Artery Scan 08/31/24 18:07 Pulse Rate 68 08/31/24 18:07 Pulse Rhythm Regular 08/31/24 18:07 Respiratory Rate 16 08/31/24 18:07 Blood Pressure 129/71 08/31/24 18:07 Blood Pressure Mean 90 08/31/24 18:07 Blood Pressure Position Sitting 08/31/24 18:07 Pulse Oximetry 96 08/31/24 18:07 Oxygen Delivery Method Room Air 08/31/24 18:07 Vital Signs Temperature 98.2 F 08/31/24 18:07 Pulse Rate 68 08/31/24 18:07 Respiratory Rate 16 08/31/24 18:07 Blood Pressure 129/71 08/31/24 18:07 Pulse Oximetry 96 08/31/24 18:07 Oxygen Delivery Method Room Air 08/31/24 18:07 Temperature 98.2 F 08/31/24 18:07 Pulse Rate 68 08/31/24 18:07 Respiratory Rate 16 08/31/24 18:07 Blood Pressure 129/71 08/31/24 18:07 Pulse Oximetry 96 08/31/24 18:07 Oxygen Delivery Method Room Air 08/31/24 18:07 Medical Decision Making MDM Narrative Medical decision making narrative: Patient is an 84 female presenting for left ear erythema redness. She does feel swollen external auditory canal. This is consistent with otitis media and she also appears to have a perichondritis. No signs of mastoiditis on my exam. I do not see any obvious Reading of the infection. Right ear looks normal. She has no history of diabetes and not on any immunosuppression medication. My concern for mother met otitis externa is low. Would also expect her to have or pain. Will do a CT scan with IV contrast for better evaluation. Will also check CBC and BMP. Lab work returned showing no acute concerning abnormalities she has a very slightly low sodium at 131 but this is unlikely to be causing any of her issues. CT scan shows moderate asymmetric inflammatory changes the left external ear and surrounding soft tissues. States this is nonspecific but could reflect otitis externa. This is consistent with my physical exam. No signs of abscesses. Overall she is doing well I believe she is safe for discharge. They did state that intensity of the redness has improved so do believe her symptoms are improving. She does have follow-up scheduled for Wednesday. You will be discharged. Lab Data Labs: Lab Results 08/31/24 Range/Units 19:00 WBC 4.71 (4.50-11.00) K/uL RBC 4.65 (4.00-5.20) m/uL Hgb 13.2 (12.0-16.0) gm/dL Hct 40.2 (33.0-51.0) % MCV 87 (80-100) fL MCH 28 (26-34) pg MCHC 33 (32-36) gm/dL RDW Coeff of Rhina 13.0 (11.5-15.5) % Plt Count 165 (140-440) K/uL Neut % (Auto) 58.6 (42.0-72.0) % Lymph % (Auto) 22.7 (20-44) % [place] % (Auto) 15.3 H (0.0-11.0) % Eos % (Auto) 3.0 (0.0-7.0) % Baso % (Auto) 0.4 (0.0-3.0) % Neut # (Auto) 2.76 (1.7-7.0) K/uL Lymph # (Auto) 1.07 (0.90-2.90) K/uL [place] # (Auto) 0.70 (0.00-0.90) K/UL Eos # (Auto) 0.14 (0.00-0.50) K/uL Baso # (Auto) 0.02 (0.00-0.30) K/uL Abs Immat Gran (auto) 0.00 (0.00-0.30) K/uL Imm/Tot Granulo (auto) 0.0 % Sodium 131 L (135-149) mmol/L Potassium 3.9 (3.6-5.1) mmol/L Chloride 93 L (96-114) mmol/L Carbon Dioxide 30 (20-32) mmol/L Anion Gap 8 (7-15) mEq/L BUN 14 (7-30) mg/dL Creatinine 0.6 (0.5-1.5) mg/dL Estimated Creat Clear 48.12 Estimated GFR 88 ml/min Glucose 108 (60-115) mg/dL Calcium 10.0 (8.4-10.6) mg/dL POC Creatinine 0.6 (0.6-1.3) mg/dl Imaging Data CT scan neck: Attestation: I have reviewed the pertinent imaging results. Radiologist's impression: Moderate asymmetric inflammatory changes of the left external ear and surrounding soft tissues, which is nonspecific, but could reflect otitis externa in the appropriate clinical setting. Please note that all CT scans at this facility use dose modulation, iterative reconstruction, and/or weight-based dosing when appropriate to reduce radiation dose to as low as reasonably achievable. Dictated by Sony Blanchard MD @ 08/31/2024 8:11:18 PM Discharge Plan Discharge Clinical Impression: Perichondritis Otitis externa Qualifiers: Otitis externa type: unspecified type Chronicity: unspecified Laterality: left Qualified Code(s): H60.92 - Unspecified otitis externa, left ear Patient Disposition: Home, Self-Care Condition: Stable Instructions: Swimmer's Ear (ED) Additional Instructions: I believe your symptoms are combination of perichondritis which is infection of the ear cartilage and otitis externa which is an infection of the ear bleeding to your tympanic membrane. I do recommend continuing the ear drops and oral antibiotics prescribed to you previously. If symptoms are worsening return for re-evaluation. Make sure to go to your follow-up appointment on Wednesday. They may have you follow-up with ENT. Prescriptions: No Action sertraline 50 mg tablet 50 mg PO QDAY Qty: 30 1RF acetaminophen 325 mg tablet 325 mg PO ONCE PRN Rx Instructions: NO MORE THAN 4000 MG/DAY meclizine 25 mg tablet 25 mg PO DAILY PRN cetirizine 10 mg tablet 10 mg PO QDAY PRN (DME) Ultra-Light Rollator Misc See Rx Instructions .Route Qty: 1 0RF Rx Instructions: As directed aspirin 81 mg tablet,chewable 81 mg PO QDAY losartan 25 mg tablet 25 mg PO QDAY Qty: 90 3RF furosemide 40 mg tablet 40 mg PO DAILY metoprolol succinate 25 mg tablet extended release 24 hr 25 mg PO DAILY Qty: 30 2RF Estring 2 mg (7.5 mcg /24 hour) ring 1 vag ring vaginal [id number] Qty: 1 3RF Follow Up/Referrals: Paola Martino MD [Primary Care Provider] - Stand Alone Forms: MyHealth Info Instructions
[2024-08-31 19:11] LABS: Creatinine, Point-of-Care* 0.6 mg/dl (0.6-1.3)
[2024-08-31 19:12] LABS: Basophils Absolute Auto 0.02 K/uL (0.00-0.30); Basophils Percent Auto 0.4 % (0.0-3.0); Eosinophils Absolute Auto 0.14 K/uL (0.00-0.50); Hematocrit 40.2 % (33.0-51.0); Hemoglobin* 13.2 gm/dL (12.0-16.0); Lymphocytes Absolute Auto 1.07 K/uL (0.90-2.90); Lymphocytes Percent Auto 22.7 % (20-44); Mean Corpuscular HGB Conc 33 gm/dL (32-36); Mean Corpuscular Hemoglobin 28 pg (26-34); Mean Corpuscular Volume 87 fL (80-100); Monocytes Percent Auto 15.3 % (0.0-11.0); Neutrophils Absolute Auto 2.76 K/uL (1.7-7.0); Neutrophils Percent Auto 58.6 % (42.0-72.0); Platelet Count* 165 K/uL (140-440); Red Blood Count 4.65 m/uL (4.00-5.20); White Blood Count* 4.71 K/uL (4.50-11.00)
[2024-08-31 19:15] LABS: Slide Review Reflex No
[2024-08-31 19:23] LABS: Chloride* 93 mmol/L (96-114); Potassium* 3.9 mmol/L (3.6-5.1); Sodium* 131 mmol/L (135-149)
[2024-08-31 19:26] LABS: Anion Gap 8 mEq/L (7-15); Blood Urea Nitrogen* 14 mg/dL (7-30); Carbon Dioxide* 30 mmol/L (20-32); Creatinine* 0.6 mg/dL (0.5-1.5); Est. Creatinine Clearance* 48.12; Estimated Glomerular Filt Rate 88 ml/min; Glucose* 108 mg/dL (60-115)
[2024-08-31 20:28] VITALS: BP 122/74; PULSE 70; RESP 16; TEMP 36.8; O2SAT 96
[2024-08-31 20:29] VITALS: BP 122/74; PULSE 70; RESP 16; TEMP 36.8
== END 2024-08-31 20:29 | disposition home or self-care (01) ==
PROVIDERS: Emergency Provider Student in an Organized Health Care Education/Training Program; PCP Student in an Organized Health Care Education/Training Program
DX: H60.92 Unspecified otitis externa, left ear (principal); H61.002 Unspecified perichondritis of left external ear
CPT/HCPCS: 36415; 70491; 80048; 82565; 85025; 99284; Q9967